=== PATIENT | female | born 1960 | race American Indian/Alaskan Native ===

== ENCOUNTER 2016-11-25 14:47 | Observation (INO) | payer MEDICARE, MEDICAID ==
[2016-11-25 16:02] VITALS: BMI 32.1
--- NOTE | 2016-11-25 16:51 | C.PDOC ---
History Of Present Illness The patient, a 56y/o female whose past medical history includes Diabetes and HTN , presents to the emergency department after being sent by her PMD for evaluation of persistent left shoulder pain which began after she sustained a fall on 11/05. Patient states she is unable to move her left shoulder and has been experiencing persistent pain since her fall. Patient also requests evaluation of hypertension and high blood sugar. She state she ran out of her Diabetes medication around 1 week ago and has found no relief after taking Flexeril that was prescribed by her PMD. She denies any new falls/trauma or extremity numbness/weakness. Time Seen by Provider: 11/25/16 16:31 Chief Complaint (Nursing): Eye Problem History Per: Patient History/Exam Limitations: no limitations Onset/Duration Of Symptoms: Days, Persistent Current Symptoms Are (Timing): Still Present Additional History Per: Patient Past Medical History Reviewed: Historical Data, Nursing Documentation, Vital Signs Vital Signs: Last Vital Signs Temp 97.7 F 11/25/16 16:02 Pulse 67 11/25/16 17:59 Resp 18 11/25/16 17:59 BP 173/80 H 11/25/16 17:59 Pulse Ox 98 11/25/16 17:59 - Medical History PMH: Asthma, Depression, Diabetes, HTN, Hypercholesterolemia, Pancreatitis Surgical History: Endoscopy - [facility] Procedures ESOPHAGOGASTRODUODENOSCOPY [EGD] W/CLOSED BIOPSY (06/10/14) INFLUENZA VACCINATION (06/10/14) VACCINATION NEC (06/10/14) Family History: States: Unknown Family Hx - Social History Hx Tobacco Use: Yes (smokes on occasion) Hx Alcohol Use: Yes (socially) Hx Substance Use: No - Immunization History Hx Tetanus Toxoid Vaccination: Yes Hx Influenza Vaccination: Yes Hx Pneumococcal Vaccination: Yes Review Of Systems Except As Marked, All Systems Reviewed And Found Negative. Constitutional: Positive for: Other (+evaluation of hypertension and high blood sugar ) Musculoskeletal: Positive for: Shoulder Pain (left ) Neurological: Negative for: Weakness, Numbness Physical Exam - Physical Exam Appears: Non-toxic, Other (moderate distress, uncomfortable ) Skin: Normal Color, Warm, Dry Head: Atraumatic, Normacephalic Eye(s): bilateral: Normal Inspection Oral Mucosa: Moist Neck: Normal ROM, Paracervical Tenderness (with spasm ), Supple Chest: Symmetrical, No Deformity, No Tenderness Cardiovascular: Rhythm Regular, No Murmur Respiratory: Normal Breath Sounds, No Rales, No Rhonchi, No Wheezing Extremity: No Normal ROM (limited ROM of left shoulder secondary to pain ), Tenderness, Capillary Refill (less than 2 seconds), No Deformity Pulses: Left Radial: Normal, Right Radial: Normal Neurological/Psych: Oriented x3, Normal Speech, Normal Cognition, Other (no focal deficits ) Gait: Steady ED Course And Treatment - Laboratory Results Result Diagrams: 11/25/16 17:25 11/25/16 17:25 O2 Sat by Pulse Oximetry: 98 (on RA) Pulse Ox Interpretation: Normal - Other Rad L SHOULDER X-Ray: Interpreted by Me (NEG) Progress Note: Labs, left shoulder XR ordered and reviewed. Patient received Morphine IV and Toradol IV. Progress - Re-Evaluation Re-evaluation Note: 11/25/16 16:50 D/W DR OTERO ADVISED OF PREV CT FINDINGS. REQUESTS SHOULDER XRAY, EVAL FOR HTN AND HYPERGLY 11/25/16 18:25 STILL W PERSIST PAIN. PT NOW REQUESTING ADMISSION. D/W DR OTERO AWRE OF ER FINDINGS WILL ADMIT - Data Reviewed Data Reviewed: Lab, Diagnostic imaging, Old records - Continuity of Care Discussed patient case with:: Patient, PMD Disposition Counseled Patient/Family Regarding: Studies Performed, Diagnosis - Disposition Disposition: HOSPITALIZED Disposition Time: 18:25 Condition: STABLE - POA Present On Arrival: None - Clinical Impression Clinical Impression: Back spasm, Shoulder pain, Hyperglycemia, Hypertension - Scribe Statement The provider has reviewed the documentation as recorded by the Scribe (Nakia Hodges) Provider Attestation: All medical record entries made by the Scribe were at my direction and personally dictated by me. I have reviewed the chart and agree that the record accurately reflects my personal performance of the history, physical exam, medical decision making, and the department course for this patient. I have also personally directed, reviewed, and agree with the discharge instructions and disposition. Decision To Admit - Pt Status Changed To: Hospital Disposition Of: Observation - . Bed Request Type: Regular Admitting Physician: Andry Otero Patient Diagnosis: Back spasm, Shoulder pain, Hyperglycemia, Hypertension
[2016-11-25 17:31] LABS: RBC URINE 1 /hpf (0-3); URINE BILIRUBIN NEGATIVE (NEGATIVE); URINE BLOOD NEGATIVE (NEGATIVE); URINE COLOR Yellow (YELLOW); URINE GLUCOSE (UA) 3+ mg/dL (Normal); URINE KETONE NEGATIVE (NEGATIVE); URINE LEUKOCYTE ESTERASE NEG Leu/uL (Negative); URINE PROTEIN NEGATIVE (NEGATIVE); URINE UROBILINOGEN NORMAL mg/dL (0.2-1.0); WBC URINE 1 /hpf (0-5)
[2016-11-25 17:35] LABS: BASO # 0.1 K/uL (0.0-0.2); BASO % 0.8 % (0.0-2.0); EOS # 0.1 K/uL (0.0-0.7); EOS % 1.6 % (0.0-4.0); HEMATOCRIT 40.6 % (34.0-47.0); LYMPH % 28.1 % (20.0-40.0); MEAN CELL VOLUME 86.3 fL (81.0-99.0); MEAN CORPUSCULAR HEMOGLOBIN 28.2 pg (27.0-31.0); MEAN CORPUSCULAR HGB CONC 32.7 g/dL (33.0-37.0); MEAN PLATELET VOLUME 8.8 fL (7.2-11.7); MONO # 0.5 K/uL (0.0-0.8); MONO % 6.4 % (0.0-10.0); RED CELL DISTRIBUTION WIDTH 13.8 % (11.5-14.5); WHITE BLOOD COUNT 7.2 K/uL (4.8-10.8)
[2016-11-25 17:37] LABS: CHLORIDE 96 mmol/L (98-107); SODIUM 138 mmol/L (132-148)
[2016-11-25 17:38] LABS: POTASSIUM 3.6 mmol/L (3.6-5.2)
[2016-11-25 17:40] LABS: ALB/GLOB RATIO 1.2 (1.0-2.1); ALKALINE PHOSPHATASE 77 U/L (38-126); ALT/SGPT 36 U/L (9-52); AST/SGOT 25 U/L (14-36); BILIRUBIN,TOTAL 0.3 mg/dL (0.2-1.3); BLOOD UREA NITROGEN 13 mg/dL (7-17); CARBON DIOXIDE 27 mmol/L (22-30); GFR AFRICAN-AMERICAN > 60; GLUCOSE,RANDOM 286 mg/dL (65-105); TOTAL PROTEIN 7.8 g/dL (6.3-8.3)
[2016-11-25] MEDS ORDERED: Morphine 4 MG/ML VIAL ONE (18:40)
[2016-11-25] MEDS ORDERED: Albuterol-Ipratrop 3 mg / 0.5 (3 ml) UD INH PRN (20:31)
[2016-11-25] MEDS: Enoxaparin 40 mg Syringe SC SCH (21:40)
[2016-11-25] MEDS: (Novolog) Insulin Aspart, Recombinant 100 u/ml 10 ml vial SC SCH (21:41)
[2016-11-25] MEDS: Oxycodone/Acetaminophen 5/325 mg Tab PO PRN (22:06)
[2016-11-26] MEDS: Oxycodone/Acetaminophen 5/325 mg Tab PO PRN (04:05)
[2016-11-26] MEDS ORDERED: Fluticasone-Salmeterol 250-50mcg Diskus INH SCH (08:00)
--- NOTE | 2016-11-26 09:48 | CP.PCM.HP ---
History of Present Illness - History of Present Illness History of Present Illness: DAYAN COMPLAIN: headache, dizziness, gen weakness x 1 week HPI; The patient, a 56y/o elderly AA female well known to me whose past medical history includes Diabetes and HTN, non complaint with diet, medication and followup , who had a fall few weeks ago and she sustained non displaced fracture of left orbit and she felt worse with pain in left shoulder, presents to the emergency department for evaluation of persistent left shoulder pain which began after she sustained a fall on 11/05. Patient states she is unable to move her left shoulder and has been experiencing persistent pain since her fall. Patient also requests evaluation of hypertension and high blood sugar. She state she ran out of her Diabetes medication around 1 week ago and has found no relief after taking Flexeril that was prescribed by me. She denies any new falls/trauma or extremity numbness/weakness. Review of Systems - Review of Systems Systems not reviewed;Unavailable: Acuity of Condition - Constitutional Constitutional: Headache, Lethargy, Malaise, Weakness - EENT Eyes: absent: As Per HPI, Blind Spots, Blurred Vision, Change in Vision, Decreased Night Vision, Diplopia, Discharge, Dry Eye, Exophthalmos, Floaters, Irritation, Itchy Eyes, Loss of Peripheral Vision, Pain, Photophobia, Requires Corrective Lenses, Sees Flashes, Spots in Vision, Tunnel Vision, Other Visual Disturbances, Loss of Vision, Other Nose/Mouth/Throat: absent: As Per HPI, Epistaxis, Nasal Congestion, Nasal Discharge, Nasal Obstruction, Nasal Trauma, Nose Pain, Post Nasal Drip, Sinus Pain, Sinus Pressure, Bleeding Gums, Change in Voice, Dental Pain, Dry Mouth, Dysphagia, Halitosis, Hoarsness, Lip Swelling, Mouth Lesions, Mouth Pain, Odynophagia, Sore Throat, Throat Swelling, Tongue Swelling, Facial Pain, Neck Pain, Neck Mass, Other - Cardiovascular Cardiovascular: absent: As Per HPI, Acrocyanosis, Chest Pain, Chest Pain at Rest , Chest Pain with Activity, Claudication, Diaphoresis, Dyspnea, Dyspnea on Exertion, Edema, Irregular Heart Rhythm, Pain Radiating to Arm/Neck/Jaw, Leg Edema, Leg Ulcers, Lightheadedness, Orthopnea, Palpitations, Paroxysmal Nocturnal Dyspnea, Pedal Edema, Radiating Pain, Rapid Heart Rate, Slow Heart Rate, Syncope, Other - Respiratory Respiratory: absent: As Per HPI, Cough, Dyspnea, Hemoptysis, Dyspnea on Exertion , Wheezing, Snoring, Stridor, Pain on Inspiration, Chest Congestion, Excessive Mucous Production, Change in Mucous Color, Pain with Coughing, Other - Gastrointestinal Gastrointestinal: absent: As Per HPI, Abdominal Pain, Belching, Bloating, Change in Bowel Habits, Change in Stool Character, Coffee Ground Emesis, Constipation, Cramping, Diarrhea, Dyspepsia, Dysphagia, Early Satiety, Excessive Flatus, Fecal Incontinence, Heartburn, Hematemesis, Hematochezia, Loose Stools, Melena, Nausea, Odynophagia, Temesmus, Vomiting, Other - Genitourinary Genitourinary: absent: As Per HPI, Change in Urinary Stream, Difficulty Urinating, Dysuria, Flank Pain, Hematuria, Pyuria, Nocturia, Urinary Incontinence, Urinary Frequency, Urinary Hesitance, Urinary Urgency, Voiding Freq/Small Amts, Freq UTI, Hx Renal/Bladder Calculi, Hx /Renal Surgery, Bladder Distension, Other - Musculoskeletal Musculoskeletal: Limited Range of Motion, Muscle Weakness, Myalgias Past Patient History - Past Medical History & Family History Past Medical History?: Yes - Past Social History Smoking Status: Light Smoker < 10 Cigarettes Daily - CARDIAC Hx Hypercholesterolemia: Yes Hx Hypertension: Yes - PULMONARY Hx Asthma: Yes - NEUROLOGICAL Hx Neurological Disorder: Yes HX Cerebrovascular Accident: Yes (2015, right sided weakness) - ENDOCRINE/METABOLIC Hx Endocrine Disorders: Yes Hx Diabetes Mellitus Type 2: Yes - HEMATOLOGICAL/ONCOLOGICAL Hx Anemia: Yes Hx Blood Transfusions: Yes - MUSCULOSKELETAL/RHEUMATOLOGICAL Hx Falls: Yes (11/05/16) - GASTROINTESTINAL Hx Pancreatitis: Yes - PSYCHIATRIC Hx Depression: Yes Hx Substance Use: No - SURGICAL HISTORY Hx Surgeries: Yes Hx Hysterectomy: Yes (2016) Hx Thyroidectomy: Yes Hx Tubal Ligation: Yes (2016) Other/Comment: colonoscopy - ANESTHESIA Hx Anesthesia: Yes Hx Anesthesia Reactions: No Hx Malignant Hyperthermia: No Has any member of the family had a problem w/ anesthesia?: No Meds Allergies/Adverse Reactions: Allergies Allergy/AdvReac Type Severity Reaction Status Date / Time dye Allergy ITCHING Uncoded 11/25/16 16:01 Physical Exam - Constitutional Appears: No Acute Distress - Head Exam Head Exam: ATRAUMATIC, NORMAL INSPECTION, NORMOCEPHALIC - Eye Exam Eye Exam: EOMI, Normal appearance, PERRL Pupil Exam: NORMAL ACCOMODATION, PERRL - Respiratory Exam Respiratory Exam: Clear to Auscultation Bilateral, NORMAL BREATHING PATTERN - Cardiovascular Exam Cardiovascular Exam: REGULAR RHYTHM - GI/Abdominal Exam GI & Abdominal Exam: Normal Bowel Sounds, Soft. absent: Tenderness - Extremities Exam Additional comments: ROM decresed in left shoulder both active and passive - Back Exam Back exam: NORMAL INSPECTION Results - Vital Signs Recent Vital Signs: Last Vital Signs Temp 97.9 F 11/26/16 08:00 Pulse 72 11/26/16 08:41 Resp 18 11/26/16 08:00 BP 141/76 11/26/16 08:00 Pulse Ox 96 11/26/16 08:00 - Labs Result Diagrams: 11/25/16 17:25 11/25/16 17:25 Labs: Laboratory Results - last 24 hr 11/25/16 11/26/16 21:29 07:40 POC Glucose (mg/dL) 279 H 173 H Assessment & Plan (1) Hypertension Status: Acute (2) Shoulder pain Status: Acute (3) Orbital fracture Status: Acute (4) Diabetes Status: Acute
[2016-11-26] MEDS: Naproxen 550 mg Tab PO SCH ×2 (10:49→17:19)
[2016-11-26] MEDS: Enoxaparin 40 mg Syringe SC SCH (10:51)
[2016-11-26] MEDS: (Novolog) Insulin Aspart, Recombinant 100 u/ml 10 ml vial SC SCH ×3 (10:51→17:21)
--- NOTE | 2016-11-26 13:56 | RAD ---
PROCEDURE: Radiographs of the Left Shoulder HISTORY: TRAUMA 11/05 COMPARISON: None FINDINGS: BONES: Normal. No fracture. JOINTS: Minor degenerative changes of the left acromioclavicular and glenohumeral joints. SOFT TISSUES: Normal. OTHER FINDINGS: None. IMPRESSION: No evidence acute displaced fracture nor dislocation. Minor degenerate changes left acromioclavicular and glenohumeral joints.
--- NOTE | 2016-11-26 15:39 | CP.PCM.PN ---
Subjective - Date & Time of Evaluation Date of Evaluation: 11/26/16 Time of Evaluation: 11:30 - Subjective Subjective: Pt seen an d examined today , denies any chest pain, sob, dizziness, head ache , numbness, tinglings to the left shoulder , c/o pain to the left shoulder , improved with pain medication left x- ray shoulder - No evidence acute displaced fracture nor dislocation. Minor degenerate changes left acromioclavicular and glenohumeral joints. Objective - Vital Signs/Intake and Output Vital Signs (last 24 hours): Temp Pulse Resp BP Pulse Ox 97.9 F 72 18 157/90 H 96 11/26/16 08:00 11/26/16 14:19 11/26/16 08:00 11/26/16 10:49 11/26/16 08:00 Intake and Output: 11/26/16 11/26/16 06:59 18:59 Intake Total 450 Balance 450 - Medications Medications: Current Medications Albuterol/Ipratropium (Duoneb 3 Mg/0.5 Mg (3 Ml) Ud) 3 ml INH RQ6 PRN PRN Reason: sob Last Admin: 11/26/16 08:40 Dose: 3 ml Clonazepam (Klonopin) 0.5 mg PO BID PRN PRN Reason: Anxiety Last Admin: 11/26/16 10:50 Dose: 0.5 mg Clonidine HCl (Catapres) 0.1 mg PO Q12 [facility] Last Admin: 11/26/16 10:50 Dose: 0.1 mg Cyclobenzaprine HCl (Flexeril) 10 mg PO Q12 [facility] Last Admin: 11/26/16 10:50 Dose: 10 mg Enalapril Maleate (Vasotec) 20 mg PO DAILY [facility] Last Admin: 11/26/16 10:49 Dose: 20 mg Enoxaparin Sodium (Lovenox) 40 mg SC DAILY [facility] Last Admin: 11/26/16 10:51 Dose: 40 mg Insulin Aspart (Novolog) 0 unit SC ACHS [facility] PRN Reason: Protocol Last Admin: 11/26/16 12:30 Dose: 4 unit Metformin HCl (Glucophage) 850 mg PO ACBD [facility] Last Admin: 11/26/16 07:30 Dose: 850 mg Naproxen (Anaprox Ds) 550 mg PO BID [facility] Last Admin: 11/26/16 10:49 Dose: 550 mg Oxycodone/Acetaminophen (Percocet 5/325 Mg Tab) 1 tab PO Q4H PRN PRN Reason: Pain, moderate (4-7) Stop: 11/28/16 21:54 Last Admin: 11/26/16 04:05 Dose: 1 tab Rosuvastatin Calcium (Crestor) 10 mg PO HS [facility] Last Admin: 11/25/16 21:40 Dose: 10 mg Fluticasone/Salmeterol (Advair Diskus 250/50) 1 puff INH RQ12 [facility] Last Admin: 11/26/16 08:40 Dose: 1 puff Assessment and Plan - Assessment and Plan (Free Text) Assessment: A/P 56 yr old female admitted for persistent shoulder pain, S/P FALL on / HTN vss - bp stable with medications X-RAY left shoulder-No evidence acute displaced fracture nor dislocation. Minor degenerate changes left acromioclavicular and glenohumeral joints. seen by florence Colon for discharge home today CM arrangeD home PT and cane provided discharge plan discussed with patient who understands and agrees with plan all Rx sent to patient pharmacy by e prescribed Pt instructed to returns to ED if symptoms get worse
[2016-11-26 15:44] VITALS: O2SAT 98
[2016-11-26 16:17] VITALS: BP 124/76; PULSE 73; RESP 20; TEMP 97.7
--- NOTE | 2016-11-27 00:49 | CP.PCM.DIS ---
Provider - Provider Date of Admission: 11/25/16 18:29 Attending physician: Andry Mullen MD Diagnosis - Discharge Diagnosis (1) Hypertension Status: Acute (2) Shoulder pain Status: Acute (3) Orbital fracture Status: Acute (4) Diabetes Status: Acute Hospital Course - Lab Results Lab Results: Most Recent Lab Values WBC 7.2 K/uL (4.8-10.8) 11/25/16 17: RBC 4.71 Mil/uL (3.80-5.20) 11/25/16 17: Hgb 13.3 g/dL (11.0-16.0) 11/25/16: Hct 40.6 % (34.0-47.0) 11/25/16: MCV 86.3 fL (81.0-99.0) 11/25/16: MCH 28.2 pg (27.0-31.0) 11/25/16: MCHC 32.7 g/dL (33.0-37.0) L 11/25/16: RDW 13.8 % (11.5-14.5) 11/25/16: Plt Count 291 K/uL (130-400) 11/25/16: MPV 8.8 fL (7.2-11.7) 11/25/16: Neut % (Auto) 63.1 % (50.0-75.0) 11/25/16: Lymph % (Auto) 28.1 % (20.0-40.0) 11/25/16: [place] % (Auto) 6.4 % (0.0-10.0) 11/25/16:25 Eos % (Auto) 1.6 % (0.0-4.0) 11/25/16: Baso % (Auto) 0.8 % (0.0-2.0) 11/25/16: Neut # 4.5 K/uL (1.8-7.0) 11/25/16: Lymph # 2.0 K/uL (1.0-4.3) 11/25/16: [place] # 0.5 K/uL (0.0-0.8) 11/25/16 17:25 Eos # 0.1 K/uL (0.0-0.7) 11/25/16 17:25 Baso # 0.1 K/uL (0.0-0.2) 11/25/16 17:25 Sodium 138 mmol/L (132-148) 11/25/16 17:25 Potassium 3.6 mmol/L (3.6-5.2) 11/25/16 17:25 Chloride 96 mmol/L (98-107) L 11/25/16 17:25 Carbon Dioxide 27 mmol/L (22-30) 11/25/16 17:25 Anion Gap 19 (10-20) 11/25/16 17:25 BUN 13 mg/dL (7-17) 11/25/16 17:25 Creatinine 0.5 MG/DL (0.7-1.2) L 11/25/16 17:25 Est GFR ( Amer) > 60 11/25/16 17:25 Est GFR (Non-Af Amer) > 60 11/25/16 17:25 POC Glucose (mg/dL) 259 mg/dL (65-110) H 11/26/16 16:30 Random Glucose 286 mg/dL (65-105) H 11/25/16 17:25 Calcium 9.0 mg/dl (8.6-10.4) 11/25/16 17:25 Total Bilirubin 0.3 mg/dL (0.2-1.3) 11/25/16 17:25 AST 25 U/L (14-36) 11/25/16 17:25 ALT 36 U/L (9-52) 11/25/16 17:25 Alkaline Phosphatase 77 U/L (38-126) 11/25/16 17:25 Total Protein 7.8 g/dL (6.3-8.3) 11/25/16 17:25 Albumin 4.2 g/dL (3.5-5.0) 11/25/16 17:25 Globulin 3.6 gm/dL (2.2-3.9) 11/25/16 17:25 Albumin/Globulin Ratio 1.2 (1.0-2.1) 11/25/16 17:25 Urine Color Yellow (YELLOW) 11/25/16 17:25 Urine Clarity Clear (Clear) 11/25/16 17:25 Urine pH 5.0 (5.0-8.0) 11/25/16 17:25 Ur Specific [place] 1.036 (1.003-1.030) H 11/25/16 17:25 Urine Protein Negative mg/dL (NEGATIVE) 11/25/16 17:25 Urine Glucose (UA) 3+ mg/dL (Normal) H 11/25/16 17:25 Urine Ketones Negative mg/dL (NEGATIVE) 11/25/16 17:25 Urine Blood Negative (NEGATIVE) 11/25/16 17:25 Urine Nitrate Negative (NEGATIVE) 11/25/16 17:25 Urine Bilirubin Negative (NEGATIVE) 11/25/16 17:25 Urine Urobilinogen Normal mg/dL (0.2-1.0) 11/25/16 17:25 Ur Leukocyte Esterase Neg Dexter/uL (Negative) 11/25/16 17:25 Urine WBC (Auto) 1 /hpf (0-5) 11/25/16 17:25 Urine RBC (Auto) 1 /hpf (0-3) 11/25/16 17:25 Ur Squamous Epith Cells 1 /hpf (0-5) 11/25/16 17:25 Serum Ketones Negative (NEGATIVE) 11/25/16 17:25 - Hospital Course Hospital Course: Pt seen an d examined today , denies any chest pain, sob, dizziness, head ache , numbness, tinglings to the left shoulder , c/o pain to the left shoulder , improved with pain medication left x- ray shoulder - No evidence acute displaced fracture nor dislocation. Minor degenerate changes left acromioclavicular and glenohumeral joints. pt is for dscharge to home, her blood sugar and blood pressure under contriol and she does not need any intervention for her left shoulder Discharge Exam - Head Exam Head Exam: ATRAUMATIC, NORMAL INSPECTION, NORMOCEPHALIC - Eye Exam Eye Exam: EOMI, Normal appearance, PERRL Pupil Exam: NORMAL ACCOMODATION, PERRL - Cardiovascular Exam Cardiovascular Exam: REGULAR RHYTHM - GI/Abdominal Exam GI & Abdominal Exam: Normal Bowel Sounds Discharge Plan - Discharge Medications Prescriptions: Fluticasone/Salmeterol 250/50 [Advair Diskus 250/50] 1 puff INH RQ12 #1 puff Naproxen [Anaprox DS] 550 mg PO BID PRN #60 tab PRN Reason: Pain, Moderate (4-7) cloNIDine [Catapres] 0.1 mg PO Q12 #60 tab Cyclobenzaprine [Flexeril] 10 mg PO Q12 #14 tab Pravastatin Sodium 40 mg PO HS #30 tablet Enalapril Maleate [Vasotec] 20 mg PO DAILY #30 tab metFORMIN [glucOPHAGE] 850 mg PO ACBD #60 tab - Follow Up Plan Condition: GOOD Disposition: HOME/ ROUTINE Instructions: Enalapril (By mouth), Clonidine (By mouth), Naproxen (By mouth), Cyclobenzaprine (By mouth), Pravastatin (By mouth), Metformin (By mouth), Fluticasone/Salmeterol (By breathing), Diabetic Foot Care (DC), Meal Planning with Diabetes Exchanges (DC), Chronic Hypertension (DC) Additional Instructions: f/u with Dr. Mullen office in 1 week Home PT Continue medication as per Med. REc. Referrals: Andry Mullen MD [Staff Provider] -
== END 2016-11-26 17:55 | disposition home or self-care (01) ==
LOC: C.ER 14:47 → C.9E 18:29 → C.3T 18:57
PROVIDERS: ADMIT Internal Medicine; ATTEND Internal Medicine
DX: M25.512 Pain in left shoulder (principal); R25.2 Cramp and spasm; I10 Essential (primary) hypertension; J45.909 Unspecified asthma, uncomplicated; Z87.891 Personal history of nicotine dependence; E11.65 Type 2 diabetes mellitus with hyperglycemia; Z79.4 Long term (current) use of insulin
CPT/HCPCS: 73030; 80053; 81001; 82009; 82948; 85025; 94640; 96374; 97116; 97162; 97166; 97530; 99285; G0378; G8978; G8979; G8987; G8988; J1650; J1885; J2270